=== PATIENT | male | born 1960 | race Caucasian/White ===

== ENCOUNTER → 2017-04-26 | Day surgery (SDC) | payer OTHER ==
[~2017-04-26] VITALS: Ht 180.3 cm; Wt 117.8 kg
[~2017-04-26] MED LIST: ACETAMINOPHEN 1000 MG/100 ML 100 ML IV ONE; ACETAMINOPHEN 1000 MG/100 ML 100 ML IV SCH; ASPI-110 PO; CHLORHEXIDINE GLUCONATE 2 % 1 PACK (2 CLOTHS) TOPICAL PRN; DEXAMETHASONE SOD PHOS 4 MG/ML VIAL IV ONE; DO NOT ADM ANY ANTICOAGULANT DRUGS PRN; FAMOTIDINE 20 MG/2 ML VIAL ONE; GLYCOPYRROLATE 0.2 MG/ML VIAL IV ONE; INSULIN HUMAN REGULAR 1,000 UNITS/10 ML VIAL SQ PRN; KETOROLAC TROMETHAMINE 30 MG/ML (IVP) VIAL IV PUSH ONE; KETOROLAC TROMETHAMINE 30 MG/ML (IVP) VIAL ONE; LACTATED RINGER'S 1000 ML IV PRN; LIDOCAINE HCL 1% PF 5 ML AMPULE OTHER ONE; LOSA25TA PO; METOPROLOL TARTRATE 25 MG TAB PO PRN; MIDAZOLAM HCL 2 MG/2 ML VIAL IV ONE; MORPHINE SULFATE 4 MG/ML INJ IV PRN; MULT-65 PO; NEOSTIGMINE 3 MG/3 ML SYR IV ONE; OMEG10004 PO; ONDANSETRON HCL 4 MG/2 ML VIAL IV PRN; ONDANSETRON HCL 4 MG/2 ML VIAL IV PUSH ONE; POVIDONE IODINE 5% (ANTISEPSIS KIT) 4 APPLICATIONS EACH NARE PRN; PROPOFOL 200 MG/20 ML AMP IV ONE; ROCURONIUM INJ 50 MG/5 ML SYRINGE IV PUSH ONE; ROCURONIUM INJ 50 MG/5 ML VIAL IV ONE; SIMV40TA PO; SODIUM CHLORID 0.9% 500 ML IV PRN; SODIUM CHLORIDE 0.9% FLUSH 10 ML FLUSH IV FLUSH PRN; SODIUM CHLORIDE 0.9% FLUSH 10 ML FLUSH IV FLUSH SCH; ceFAZolin 2 GM PREMIX 50 ML IV SCH; ceFAZolin INJ 1,000 MG VIAL ONE; ePHEDrine/NS 25 MG/5 ML SYR IV ONE; oxyCODONE/ACETAMINOPHEN 5 MG/325 MG TAB PO PRN
--- NOTE | 2017-04-26 11:40 | PD.OP ---
cc: Ben Chao MD Operative Report Date of Surgery: Apr 26, 2017 Preoperative Diagnosis: Recurrent umbilical hernia Postoperative Diagnosis: Recurrent umbilical hernia Procedure: Laparoscopic repair of recurrent umbilical hernia with removal of prior mesh Anesthesia: Gen. endotracheal Surgeon: Ben Chao Math Teacher(s): Gareth Sevilla, MS 3 Operation and Findings: Operative findings: The patient was found to have a 2.5-3 cm supraumbilical hernia which represented a recurrence of a previous repair. The patient had a previous mesh repair with a portion of the mesh antra peritoneal with mild adhesions to it. There was a fair amount of inspissated omentum in the hernia sac which was adherent to the hernia sac itself. No other abnormalities were noted. Operative procedure: The patient brought to the operating room after satisfactory general endotracheal anesthesia obtained, the abdomen was prepped and draped in the usual sterile fashion. The patient previously undergone placement of a TA P block with external. 0.25% Marcaine with epinephrine was used to infiltrate the skin for local anesthesia. Incision was made in the left subcostal region and carried out sharply through subcutaneous tissue. The fascia was bluntly as were the muscles and the peritoneum was bluntly entered with care being taken not to injure the underlying viscera. A 12 mm GelPort was placed within the peritoneal cavity and the balloon engaged. The abdomen was then insufflated 15 mmHg with carbon dioxide. The camera was reinserted and visceral injury inspected for, with none being identified. Under direct visualization 5 mm ports placed in the left lower quadrant and 2 were placed on the right side and the right and upper and lower quadrants. The omentum was grasped and by careful dissection was removed from the supraumbilical hernia sac with portion of the being resected. The previously placed intraperitoneal mesh was resected and also removed later. The intraperitoneal fat was then taken down with the Harmonic scalpel to allow placement of a 6 inch round ventral light ST patch. The echo deployment system was used to roll the mesh and placed within the peritoneal cavity where was unfurled. The site for exit of the insufflation tubing was identified and a small incision was made. A Erie suture passer was then placed within the peritoneal cavity and the insufflation tubing was brought externally. The mesh backbone was then inflated without problem. The mesh was brought into close proximal mesh and to the anterior abdominal wall and secured there with hemostats level of the skin. The mesh was then secured circumferentially with absorbable tacks after which the mesh backbone was removed without problem. The mesh was then completely tacked to the anterior abdominal wall to allow proper ingrowth of tissue. Once the mesh had been completely tacked into place it was observed and found to be hemostatic. The mesh was seen to well cover the previous hernia defect as well as the new one with an extension superiorly to cover the diastases rectus. After checking for hemostasis once again the carbon dioxide was vented as completely as possible the atmosphere, after which the ports were removed and the 12 mm fascial defect was closed with single suture of 0 Vicryl. The skin was then closed with interrupted 4-0 PDS subcutaneous stitches. Steri-Strips were applied the patient was then awakened and taken from the operating room, in satisfactory condition, having tolerated the procedure problem. Estimated blood loss was less than 15 mL's. The instrument, sponge, needle counts reported as being correct 2 at the end of the procedure. Ben Chao MD Apr 26, 2017 11:40
[2017-04-26 13:00] VITALS: BP 125/67; PULSE 73; RESP 20; TEMP 97.6; O2SAT 95
== END | disposition home or self-care (01) ==
LOC: HSDC 05:54
PROVIDERS: ATTEND Surgery
DX: K42.9 Umbilical hernia without obstruction or gangrene (principal); I10 Essential (primary) hypertension; E78.5 Hyperlipidemia, unspecified; F17.290 Nicotine dependence, other tobacco product, uncomplicated; E66.9 Obesity, unspecified; Z68.36 Body mass index [BMI] 36.0-36.9, adult; Z79.82 Long term (current) use of aspirin; Z79.899 Other long term (current) drug therapy
CPT/HCPCS: 00750; 49652; 88302; 94150; C1781; J0131; J0690; J1100; J2250; J2405; J2710; J3010; J7120; J1885